=== PATIENT | male | born 1960 | race Two or more races ===

== ENCOUNTER 2021-06-01 23:18 | Emergency (ER) | payer OTHER ==
[~2021-06-01] VITALS: Ht 170.2 cm; Wt 76.2 kg
[2021-06-01 23:39] VITALS: BP 146/86
--- NOTE | 2021-06-01 23:51 | NUR ---
Patient discharged with law enforcment in stable condition. Written and verbal after care instructions given. Patient verbalizes understanding of instruction.
== END 2021-06-01 23:53 ==
LOC: ER 23:21
DX: Z02.89 Encounter for other administrative examinations (principal)